=== PATIENT | male | born 1985 | race Caucasian/White ===

== ENCOUNTER → 2016-05-10 | Outpatient (CLI) | payer OTHER ==
--- NOTE | 2016-05-10 10:08 | RAD ---
EXAM DESCRIPTION: XR HAND 3 OR MORE VIEWS CLINICAL HISTORY: PAIN COMPARISON: None Available. TECHNIQUE: AP, LATERAL, AND OBLIQUE FINDINGS: No bone or joint abnormality is seen. The exam does reveal some soft tissue swelling critically in the 2nd digit. IMPRESSION: Mild soft tissue swelling is observed without evidence fracturing. Electronically signed by: Boom Gandara MD 05/10/2016 10:07
--- NOTE | 2016-05-10 10:08 | RAD ---
EXAM DESCRIPTION: Left hand three views CLINICAL HISTORY: 30 y/o ,M, hand pain COMPARISON: None. IMPRESSION: No advanced osteoarthrosis. No active erosions. No fracture or dislocation. No chondrocalcinosis. No acute osseous abnormality. Electronically signed by: Noah Morales MD 05/10/2016 10:06
== END ==
LOC: RAD 09:13
PROVIDERS: ATTEND Orthopaedic Surgery
DX: M79.641 Pain in right hand (principal); M79.642 Pain in left hand; M79.89 Other specified soft tissue disorders